=== PATIENT | male | born 1980 | race African-American/Black ===

== ENCOUNTER 2018-03-12 21:49 | Emergency (ER) | payer MEDICAID ==
[~2018-03-12] VITALS: Ht 185.4 cm; Wt 131.5 kg
[2018-03-12 23:13] LABS: BASOPHILS % (AUTO) 0.2 % (0.0-2.0); EOSINOPHILS # (AUTO) 0.3 K/uL (0.0-0.7); EOSINOPHILS % (AUTO) 4.7 % (0.0-7.0); HEMATOCRIT 38.3 % (36.7-47.1); HEMOGLOBIN 12.9 g/dL (12.5-16.3); LYMPHOCYTES # (AUTO) 2.8 K/uL (20.0-40.0); LYMPHOCYTES % (AUTO) 42.6 % (20.5-51.5); MEAN CORPUSCULAR HEMOGLOBIN 29.8 uug (23.8-33.4); MEAN CORPUSCULAR HGB CONC 34 g/dL (32.5-36.3); MEAN CORPUSCULAR VOLUME 88.3 fL (73.0-96.2); MONOCYTES # (AUTO) 0.4 K/uL (2.0-10.0); MONOCYTES % (AUTO) 6.5 % (0.0-11.0); PLATELET COUNT (AUTO) 295 K/uL (152-348); RED BLOOD CELL COUNT(AUTO) 4.33 MIL/uL (4.06-5.63); WHITE BLOOD COUNT (AUTO) 6.6 K/uL (3.6-10.2)
[2018-03-12 23:27] LABS: CARBON DIOXIDE 28 mmol/L (21-32); CHLORIDE 103 mmol/L (98-107); CREATININE 1.1 mg/dL (0.6-1.3); GLUCOSE 94 mg/dL (74-106); POTASSIUM 4.1 mmol/L (3.5-5.1); UREA NITROGEN, BLOOD 15 mg/dL (7-18)
[2018-03-12 23:40] LABS: ALANINE AMINOTRANSFERASE 50 U/L (16-63); ALKALINE PHOSPHATASE 82 U/L (50-136); ASPARTATE AMINOTRANSFERASE 32 U/L (15-37); BILIRUBIN,DIRECT 0.1 mg/dL (0.0-0.2); BILIRUBIN,TOTAL 0.2 mg/dL (0.2-1.0); TOTAL PROTEIN, SERUM 7.2 g/dL (6.4-8.2)
[2018-03-12 23:43] LABS: ACETAMINOPHEN < 2.0 ug/mL (10-30)
[2018-03-12 23:44] LABS: ETHANOL < 3 MG/DL (0-0)
--- NOTE | 2018-03-13 00:10 | NUR ---
SPOKE WITH HEATHER STACK RN. HEATHER MADE AWARE THAT PT IS MEDICALLY CLEAR AND NEEDING PSYCH EVAL. HEATHER ESTIMATES THAT SHE'LL BE HERE IN ROUGHLY ONE HOUR.
--- NOTE | 2018-03-13 00:56 | NUR ---
PT IN BED RESTING QUIETLY WITH EYES CLOSED. PT IS A&OX4. VSS. NO SIGNS/SYMPTOMS OF DISTRESS WITNESSED BY NURSE OR EXPRESSED BY PT.
--- NOTE | 2018-03-13 01:16 | NUR ---
PSYCH EVAL BEING CONDUCTED BY HEATHER STACK RN.
--- NOTE | 2018-03-13 04:27 | NUR ---
PT IN BED RESTING WITH EYES CLOSED. PT IS EASILY AROUSABLE. BREATH SOUNDS EVEN AND UNLABORED. NO SIGNS/SYMPTOMS OF DISTRESS WITNESSED BY NURSE OR EXPRESSED BY PT AT THIS TIME.
--- NOTE | 2018-03-13 07:05 | NUR ---
Patient given written and verbal discharge instructions. Patient verbalizes understanding of instructions. Patient is ambulatory with steady gait. Refuses offer of skilled nursing placement. Patient given list of available shelters in surrounding area.XIMENA MCGENSY ambulatory with a steady gait. Patient discharged to home in stable conditon. Written and verbal after care instructions given. Patient verbalizes understanding of instructions.
--- NOTE | 2018-03-13 07:08 | NUR ---
REPORT GIVEN TO APRYL GRAY.
[2018-03-13 07:35] VITALS: BP 128/61
== END 2018-03-13 07:05 | disposition home or self-care (01) ==
LOC: ER 21:52
DX: F29 Unspecified psychosis not due to a substance or known physiological condition (principal)
CPT/HCPCS: 36415; 71045; 80048; 80076; 85025; 93005; 99285; A4663; G0480 ×2; G0481